=== PATIENT | female | born 1985 | race Two or more races ===

== ENCOUNTER 2019-08-25 18:14 | Emergency (ER) | payer OTHER ==
[~2019-08-25] VITALS: Ht 165.1 cm; Wt 106.3 kg
--- NOTE | 2019-08-25 18:51 | NUR ---
PT HERE WITH C/O DIZZINES, SOB, NAUSEA AND VOMITTING, AND CHILLS. PT STATES SHE WAS ON THE [employer] AND STARTED TO FEEL WEAK AND DIZZY, HAD 5 EPISODES OF VOMITTING AND WAS SENT FROM [facility] ST[facility] TO ER. PT AAO X 4, NAD, ROOM AIR, CALL LIGHT WITHIN REACH. PT AMBULATORY WITH STEADY GAIT TO RESTROOM FOR URINE SAMPLE. PT DENIES DAILY MEDICATIONS, STATES ONLY MEDICAL HX IS PCOS.
--- NOTE | 2019-08-25 18:54 | NUR ---
PA AT BEDSIDE.
[2019-08-25] MEDS ORDERED: SODIUM CHLORIDE 0.9% 1,000ML IVBOLUS ONE (19:00)
[2019-08-25] MEDS ORDERED: SODIUM CHLORIDE FLUSH 10ML SYR IVF ONE (19:00)
[2019-08-25] MEDS ORDERED: ONDANSETRON 2MG/ML, 2ML IVPush ONE (19:00)
[2019-08-25 19:22] LABS: RAPID INFLUENZA A Negative (Negative); RAPID INFLUENZA B Negative (Negative)
--- NOTE | 2019-08-25 19:25 | NUR ---
PIV ESTABLISHED AND LABS DRAWN AND SENT. IV FLUIDS INFUSING PER ORDER, PT REFUSED IV ZOFRAN STATING SHE RECEIVED THE PO VERSION AT URGENT CARE.
[2019-08-25 19:28] LABS: BASOPHILS # (AUTO) 0.01 x10^3/uL (0-0.1); BASOPHILS % (AUTO) 0 % (0-1); EOSINOPHILS # (AUTO) 0.15 x10^3/uL (0-0.4); EOSINOPHILS % (AUTO) 2 % (1-7); LYMPHOCYTES # (AUTO) 0.82 x10^3/uL (1-3.4); LYMPHOCYTES % (AUTO) 9 % (22-44); MD NO; MEAN CORPUSCULAR HEMOGLOBIN 26.2 pg (27.0-34.8); MEAN CORPUSCULAR HGB CONC 32.6 g/dL (32.4-35.8); MEAN CORPUSCULAR VOLUME 80.5 fL (80-100); MEAN PLATELET VOLUME 8.4 fL (7.4-10.4); MONOCYTES # (AUTO) 0.17 x10^3/uL (0.2-0.8); MONOCYTES % (AUTO) 2 % (2-9); NEUTROPHILS # (AUTO) 8.34 x10^3/uL (1.8-6.8); NEUTROPHILS % (AUTO) 88 % (42-75); PLATELET COUNT 383 x10^3/uL (130-400); RED BLOOD COUNT 4.56 x10^6/uL (3.82-5.3); RED CELL DISTRIBUTION WIDTH 20.2 % (9.6-15.2)
[2019-08-25 19:35] LABS: MICROSCOPIC INDICATED
[2019-08-25 19:41] LABS: ALBUMIN 3.8 g/dL (3.4-5.0); ANION GAP 7 mmol/L (5-15); CALCIUM 8.9 mg/dL (8.5-10.1); CHLORIDE 105 mmol/L (98-107); CREATININE 0.77 mg/dL (0.55-1.02)
[2019-08-25 19:45] LABS: ALKALINE PHOSPHATASE 67 U/L (45-117); BILIRUBIN,TOTAL 0.6 mg/dL (0.2-1.0)
[2019-08-25 19:49] LABS: ALANINE AMINOTRANSFERASE 28 U/L (12-78)
[2019-08-25 19:52] LABS: CULTURE INDICATED? NO
[2019-08-25] MEDS ORDERED: ACETAMINOPHEN 500 MG TABLET ONE (20:10)
--- NOTE | 2019-08-25 20:13 | NUR ---
THIS RN CALLED TO ROOM. PT SHIVERING BUT VERY WARM TO TOUCH. TEMP TAKEN, 100.3 ORALLY. THIS RN ALSO NOTICED THAT PT'S HR WAS IN THE 130S. PT REQUESTING TO USE RESTROOM, AMBULATORY WITH STEADY GAIT TO RESTROOM. THIS RN UPDATED PA ABOUT PT'S VITALS, NEW ORDER RECIEVED FOR PO TYLENOL. IV FLUIDS STILL INFUSING. PT MEDICATED PER PA ORDER.
--- NOTE | 2019-08-25 20:19 | NUR ---
PT TO XRAY.
[2019-08-25] MEDS ORDERED: ACETAMINOPHEN 500 MG TABLET PO ONE (20:30)
--- NOTE | 2019-08-25 20:36 | NUR ---
PT BACK FROM XRAY.
--- NOTE | 2019-08-25 20:47 | NUR ---
PA AT BEDSIDE TO DISCUSS POC.
[2019-08-25] MEDS ORDERED: METOCLOPRAMIDE 5 MG/ML, 2ML ONE (20:48)
--- NOTE | 2019-08-25 20:51 | NUR ---
PT MEDICATED PER DEC. TEMP RECHECK 101.0, THIS RN TO NOTIFY
--- NOTE | 2019-08-25 20:52 | NUR ---
PA NOTIFIED AND NEW ORDERS RECEIVED FOR PO MOTRIN.
--- NOTE | 2019-08-25 20:59 | NUR ---
REPORT GIVEN TO ALEXA SANDY. CARE TRANSFERRED AT THIS TIME.
[2019-08-25] MEDS ORDERED: METOCLOPRAMIDE 5 MG/ML, 2ML IVPush ONE (21:00)
[2019-08-25] MEDS ORDERED: IBUPROFEN 600 MG TABLET PO ONE (21:00)
[2019-08-25] MEDS ORDERED: IBUPROFEN 600 MG TABLET ONE (21:13)
[2019-08-25 22:25] VITALS: BP 118/74
== END 2019-08-25 22:43 | disposition home or self-care (01) ==
LOC: ED 22:15
DX: K52.9 Noninfective gastroenteritis and colitis, unspecified (principal)
CPT/HCPCS: 36415; 71046; 80053; 81001; 83605; 83690; 84703; 85025; 87400; 96361; 96374; 99284; J2765; J7030